=== PATIENT | male | born 1990 | race Caucasian/White ===

== ENCOUNTER 2017-10-17 00:09 | Emergency (ER) | payer OTHER ==
[2017-10-17] MEDS ORDERED: Ondansetron 4 MG/2 ML SDV IVPUSH ONE (01:07)
[2017-10-17] MEDS ORDERED: Ondansetron 4 MG/2 ML SDV ONE (01:08)
[2017-10-17] MEDS ORDERED: Sodium Chloride 0.9% 1,000 ML IV ONE (01:08)
--- NOTE | 2017-10-17 01:20 | EDM.PDOC ---
ED HPI GENERAL MEDICAL PROBLEM - General Chief Complaint: Head Injury Stated Complaint: LACERATION ON BACK OF HEAD Time Seen by Provider: 10/17/17 01:11 - History of Present Illness INITIAL COMMENTS - FREE TEXT/NARRATIVE: HISTORY AND PHYSICAL: History of present illness: Patient 26-year-old white male presents status post presumptive fall where he was found at the bottom of several stairs he is amnestic of the event he was drinking and is seemingly intoxicated was brought via paramedics patient denies any chest or abdominal pain or trauma denies any nausea or vomiting although shortly after arrival in ER patient developed nausea with emesis he remains awake alert he is answering questions although does have some degree of perseveration. Review of systems: As per history of present illness and below otherwise all systems reviewed and negative. Past medical history: As per history of present illness and as reviewed below otherwise noncontributory. Surgical history: As per history of present illness and as reviewed below otherwise noncontributory. Social history: No reported history of drug or alcohol abuse. Family history: As per history of present illness and as reviewed below otherwise noncontributory. Physical exam: HEENT: Patient has approximately 2 cm moderate depth laceration with good hemostasis of the occipital scalp, normocephalic, pupils reactive, negative for conjunctival pallor or scleral icterus, mucous membranes moist, throat clear, neck supple, nontender, trachea midline. Lungs: Clear to auscultation, breath sounds equal bilaterally, chest nontender. Heart: S1S2, regular, negative for clicks, rubs, or JVD. Abdomen: Soft, nondistended, nontender. Negative for masses or hepatosplenomegaly. Negative for costovertebral tenderness. Pelvis: Stable nontender. Genitourinary: Deferred. Rectal: Deferred. Extremities: Atraumatic, negative for cords or calf pain. Neurovascular unremarkable. Neuro: Awake, alert, follows commands and moves all extremities limited but grossly nonfocal exam Diagnostics: CBC CMP PT/INR EtOH UA urine drug screen chest x-ray CT brain CT C-spine EKG Therapeutics: IV monitor Impression: #1 head trauma with subdural hematoma and subarachnoid hemorrhage #2 multiple skull fractures #3 alcohol abuse with intoxication Definitive disposition and diagnosis as appropriate pending reevaluation and review of above. no pain Pain Score (Numeric/FACES): 0 - Related Data Allergies Allergy/AdvReac Type Severity Reaction Status Date / Time No Known Allergies Allergy Verified 10/17/17 00:17 Home Meds: Home Meds . [No Known Home Meds] 10/17/17 [History] Past Medical History - Past Health History Medical/Surgical History: Denies Medical/Surgical History HEENT History: Reports: None Cardiovascular History: Reports: None Respiratory History: Reports: None Gastrointestinal History: Reports: None Genitourinary History: Reports: None Musculoskeletal History: Reports: None Psychiatric History: Reports: None Endocrine/Metabolic History: Reports: None Hematologic History: Reports: None Dermatologic History: Reports: None Social & Family History - Family History Family Medical History: Noncontributory - Tobacco Use Smoking Status *Q: Unknown Ever Smoked - Recreational Drug Use Recreational Drug Use: No ED ROS GENERAL - Review of Systems Review Of Systems: ROS reveals no pertinent complaints other than HPI. ED EXAM, HEAD INJURY - Physical Exam Exam: See Below (See dictation) Course - Vital Signs Last Recorded V/S: Last Vital Signs Temp 36.1 C 10/17/17 00:09 Pulse 89 10/17/17 01:05 Resp 14 10/17/17 00:09 BP 127/76 10/17/17 01:05 Pulse Ox 99 10/17/17 01:05 - Orders/Labs/Meds Orders: Active Orders 24 hr Category Date Time Status EKG Documentation Completion [RC] STAT Care 10/17/17 00:58 Active Cervical Spine wo Cont [CT] Stat Exams 10/17/17 00:13 Taken Chest 1V Frontal [CR] Stat Exams 10/17/17 01:01 Ordered Chest 2V [CR] Stat Exams 10/17/17 00:58 Stop Req Head wo Cont [CT] Stat Exams 10/17/17 00:13 Taken Blood Alcohol [ETHANOL BLOOD MEDICAL] [CHEM] Stat Lab 10/17/17 01:05 Received CBC WITH AUTO DIFF [HEME] Stat Lab 10/17/17 00:58 Received COMPREHENSIVE METABOLIC PN,CMP [CHEM] Stat Lab 10/17/17 01:05 Received DRUG SCREEN, URINE [URCHEM] Stat Lab 10/17/17 00:58 Ordered INR,PT,PROTHROMBIN TIME [COAG] Stat Lab 10/17/17 01:05 Received UA W/MICROSCOPIC [URIN] Stat Lab 10/17/17 00:58 Ordered Sodium Chloride 0.9% [Normal Saline] 1,000 ml Med 10/17/17 01:08 Active IV .Bolus Medication Orders Sodium Chloride (Normal Saline) 1,000 mls @ 999 mls/hr IV .Bolus ONE Stop: 10/17/17 02:08 Last Admin: 10/17/17 01:11 Dose: 999 mls/hr Meds: Medications Generic Name Dose Route Start Last Admin Trade Name Freq PRN Reason Stop Dose Admin Sodium Chloride 1,000 mls @ 999 mls/hr 10/17/17 01:08 10/17/17 01:11 Normal Saline IV 10/17/17 02:08 999 mls/hr .Bolus ONE Administration Discontinued Medications Generic Name Dose Route Start Last Admin Trade Name Freq PRN Reason Stop Dose Admin Lidocaine HCl 5 ml 10/17/17 00:14 Xylocaine-Mpf 1% INJECT 10/17/17 00:15 ONETIME ONE Ondansetron HCl 4 mg 10/17/17 01:07 10/17/17 01:11 Zofran IVPUSH 10/17/17 01:08 4 mg ONETIME ONE Administration Ondansetron HCl Confirm 10/17/17 01:08 Zofran Administered 10/17/17 01:09 Dose 4 mg .ROUTE .STK-MED ONE Departure - Departure Time of Disposition: 01:19 Disposition: DC/Tfer to Acute Hospital 02 Condition: Serious Clinical Impression: Subdural hemorrhage, Subarachnoid hemorrhage, Fracture of skull - Discharge Information - My Orders Last 24 Hours: My Active Orders 10/17/17 00:13 Cervical Spine wo Cont [CT] Stat Head wo Cont [CT] Stat 10/17/17 00:58 EKG Documentation Completion [RC] STAT Chest 2V [CR] Stat CBC WITH AUTO DIFF [HEME] Stat DRUG SCREEN, URINE [URCHEM] Stat UA W/MICROSCOPIC [URIN] Stat 10/17/17 01:01 Chest 1V Frontal [CR] Stat 10/17/17 01:05 Blood Alcohol [ETHANOL BLOOD MEDICAL] [CHEM] Stat COMPREHENSIVE METABOLIC PN,CMP [CHEM] Stat INR,PT,PROTHROMBIN TIME [COAG] Stat 10/17/17 01:08 Sodium Chloride 0.9% [Normal Saline] 1,000 ml IV .Bolus - Assessment/Plan Last 24 Hours: My Active Orders 10/17/17 00:13 Cervical Spine wo Cont [CT] Stat Head wo Cont [CT] Stat 10/17/17 00:58 EKG Documentation Completion [RC] STAT Chest 2V [CR] Stat CBC WITH AUTO DIFF [HEME] Stat DRUG SCREEN, URINE [URCHEM] Stat UA W/MICROSCOPIC [URIN] Stat 10/17/17 01:01 Chest 1V Frontal [CR] Stat 10/17/17 01:05 Blood Alcohol [ETHANOL BLOOD MEDICAL] [CHEM] Stat COMPREHENSIVE METABOLIC PN,CMP [CHEM] Stat INR,PT,PROTHROMBIN TIME [COAG] Stat 10/17/17 01:08 Sodium Chloride 0.9% [Normal Saline] 1,000 ml IV .Bolus
[2017-10-17] MEDS ORDERED: cefTRIAXone 2 GM in Premix Bag 1 BAG IV ONE (01:24)
[2017-10-17 01:33] LABS: CHLORIDE,CL 107 mmol/L (98-107); SODIUM,NA 146 mmol/L (136-148)
[2017-10-17] MEDS ORDERED: Diphtheria,Pertussis(Acell),Tetanus Vaccine 0.5 ML Syringe IM ONE (01:42)
--- NOTE | 2017-10-17 15:15 | CT ---
EXAM DATE: 10/17/17 PATIENT'S AGE: 26 Patient: CAITIE ERNST Facility: [place], [place] Site . Site : 1991 Study: CT Spine Cervical [id number]/8/2018 12:46:08 AM Ordering Physician: Doctor Munoz Final Report: INDICATION: Status post fall, neck pain. TECHNIQUE: CT cervical spine without i.v. contrast. Coronal and sagittal reformats were obtained. COMPARISON: None FINDINGS: Vertebral alignment: Alignment is normal. Vertebrae: No acute fractures or aggressive osseous lesions are identified. Discs and facet joints: Disc spaces are within normal limits. The facet joints are unremarkable in appearance. Extraspinal findings: The prevertebral soft tissues are unremarkable in appearance. The visualized lung apices and mediastinum are unremarkable. IMPRESSION: 1. No acute cervical spine fracture or abnormal subluxation injury. Dictated by Massimo Martínez MD @ 10/17/2017 1:01:50 AM Please note that all CT scans at this facility use dose modulation, iterative reconstruction, and/or weight-based dosing when appropriate to reduce radiation dose to as low as reasonably achievable. Dictated by: Massimo Martínez MD @ 10/17/2017 01:01:56 ----- ADDENDUM ----- ADDENDUM: 1. Dr. Brantley confirmed report receipt on 10/17/2017 at 1:04am ASSISTANT PROFESSOR OF HISTORY. Dictated by Massimo Martínez MD @ Oct 17 2017 1:06AM (Electronic Signature) Report Signed by Proxy. VASHTI
--- NOTE | 2017-10-17 15:15 | CT ---
EXAM DATE: 10/17/17 PATIENT'S AGE: 26 Patient: CAITIE ERNST Facility: [place], [place] Site . Site : 1991 Study: CT Head [id number]/8/2018 12:45:49 AM Ordering Physician: Doctor Munoz Final Report: INDICATION: Fall, pain. TECHNIQUE: CT head without i.v. contrast. COMPARISON: None FINDINGS: Acute left frontal fracture, series 2 and 2, image 51. Associated left frontal scalp hematoma with extra-axial hemorrhage, likely subdural hemorrhage on series 201, image 51, diameter 1.9 centimeters. Left frontal subdural hemorrhage extends inferiorly along the anterior margin of the left convexity. Associated subarachnoid hemorrhage. In the bilateral frontal lobes and medial margin of left temporal lobe. No intraventricular hemorrhage identified. Right occipital scalp hematoma also noted. Left frontal fracture appears to extend posteriorly, towards superior margin of right occipital bone on series 2 and 2, image 51. IMPRESSION: 1. Acute left frontal and right occipital fractures with associated scalp hematomas. 2. Left frontal subdural hemorrhage with likely posttraumatic subarachnoid hemorrhage in the bilateral frontal lobes and medial left temporal lobe. Report called to Dr. Brantley on 10/17/2017 at 12:55am ADVANCED PRACTICE PROVIDER. Dictated by Massimo Martínez MD @ 10/17/2017 12:57:31 AM Please note that all CT scans at this facility use dose modulation, iterative reconstruction, and/or weight-based dosing when appropriate to reduce radiation dose to as low as reasonably achievable. Dictated by: Massimo Martínez MD @ 10/17/2017 00:57:40 (Electronic Signature) Report Signed by Proxy. MTDChan
--- NOTE | 2017-10-17 15:16 | CR ---
EXAM DATE: 10/17/17 PATIENT'S AGE: 26 Patient: CAITIE ERNST Facility: [place], [place] Site . Site : 1990 Study: XRay Chest [id number]/8/2018 1:23:58 AM Ordering Physician: Doctor Munoz Final Report: Indication: Head injury Technique: Chest 1 view Comparison: None Findings/Impression: Cardiovascular and mediastinum: Cardiomegaly. Lungs and pleural space: Lungs are clear. No sign of infiltrate or mass. No sign of pleural effusion. No pneumothorax. Bones and soft tissues: No significant findings. Dictated by Ralph Ochoa MD @ 10/17/2017 1:39:06 AM Dictated by: Ralph Ochoa MD @ 10/17/2017 01:39:10 (Electronic Signature) Report Signed by Proxy. MTDChan
== END 2017-10-17 02:50 ==
LOC: MW.ED 00:09
DX: S02.91XA Unspecified fracture of skull, initial encounter for closed fracture (principal); S06.5X9A Traumatic subdural hemorrhage with loss of consciousness of unspecified duration, initial encounter; S06.6X0A Traumatic subarachnoid hemorrhage without loss of consciousness, initial encounter; W10.9XXA Fall (on) (from) unspecified stairs and steps, initial encounter
CPT/HCPCS: 70450; 71045; 72125; 80053; 85025; 85610; 90471; 90715; 93005; 96365; 96375; 99285; G0480; J0696; J2405; J7040